=== PATIENT | male | born 1950 ===

== ENCOUNTER → 2018-07-08 21:15 | Outpatient (REF) | payer MEDICARE, SELFPAY ==
[2018-07-08 22:52] LABS: Add Manual Diff / Slide Review NO; Basophils Absolute Auto 0 /uL (0-100); Eosinophils Absolute Auto 100 /uL (0-450); Eosinophils Percent Auto 2.5 % (2-4); Hematocrit 49.6 % (41-53); Hemoglobin 16.8 g/dL (13.5-17.5); Lymphocytes Absolute Auto 1300 /uL (1100-4500); Lymphocytes Percent Auto 29.7 % (25-40); Mean Corpuscular Hemoglobin 35.9 PG (26-34); Mean Corpuscular Volume 105.6 fL (80-100); Monocytes Absolute Auto 500 /uL (0-900); Monocytes Percent Auto 12.3 % (3-14); Neutrophils Absolute Auto 2300 /uL (1500-7000); Neutrophils Percent Auto 54.5 % (50-75); Platelet Count 183 X10^3/uL (150-400); White Blood Cell Count 4.3 X10^3/uL (4.5-11.0)
[2018-07-08 23:08] LABS: Alanine Aminotransferase 56 IU/L (21-72); Albumin 4.5 g/dL (3.5-5.0); Albumin Globulin Ratio 1.8 (1.0-2.8); Alkaline Phosphatase 56 U/L (38-126); Aspartate Aminotransferase 38 IU/L (17-59); BUN Creatinine Ratio 26.3 (6-22); Bilirubin Total 1.2 mg/dL (0.2-1.3); Blood Urea Nitrogen 21 mg/dL (9-20); Calcium 9.6 mg/dL (8.4-10.2); Carbon Dioxide 33 mmol/L (22-32); Chloride 99 mmol/L (98-107); Cholesterol 239 mg/dL (140-199); Estimated Glomerular Filt Rate > 60.0 mL/min (>60); Globulin 2.5 g/dL (1.7-4.1); Glucose 103 mg/dL (80-110); HDL Cholesterol 67 mg/dL (40-60); HEMOLYSIS < 15 (0-50); LDL Cholesterol Calculated 156 mg/dL (<100); Potassium 4.6 mmol/L (3.4-5.1); Sodium 140 mmol/L (137-145); Triglycerides 79 mg/dL (35-150)
[2018-07-12 15:56] LABS: PSA Total 2.15 ng/mL (< 4.01)
[2018-07-14 13:21] LABS: Testosterone,Free 3.2
== END ==
LOC: LAB 21:15
PROVIDERS: Visit Provider Family Medicine
DX: E29.1 Testicular hypofunction (principal); I10 Essential (primary) hypertension; D75.1 Secondary polycythemia
CPT/HCPCS: 36415; 80053; 80061; 84153; 84154; 84402; 84403; 85025